=== PATIENT | male | born 1975 | race Caucasian/White ===

== ENCOUNTER 2017-04-21 23:29 | Emergency (ER) | payer BC ==
[~2017-04-21] VITALS: Ht 172.7 cm; Wt 72.6 kg
[2017-04-21 23:38] VITALS: BP 177/100
== END 2017-04-22 00:01 | disposition home or self-care (01) ==
LOC: ER 23:31
DX: S30.813A Abrasion of scrotum and testes, initial encounter (principal); Z87.442 Personal history of urinary calculi; X58.XXXA Exposure to other specified factors, initial encounter; Y92.89 Other specified places as the place of occurrence of the external cause; Y93.89 Activity, other specified; Y99.8 Other external cause status
CPT/HCPCS: 99283; A4606; Z7610